=== PATIENT | female | born 1955 | race African-American/Black ===

== ENCOUNTER 2023-11-19 09:52 | Inpatient (IN) | payer MEDICARE, MEDICAID ==
[2023-11-19] MEDS ORDERED: Calcium Carbonate 500 MG ChewTAB PO PRN (12:02)
[2023-11-19] MEDS ORDERED: Senokot S 8.6-50 MG TAB PO PRN (12:02)
[2023-11-19] MEDS ORDERED: Ipratropium/Albuterol 3 ML NEB NEB PRN (12:09)
[2023-11-19] MEDS ORDERED: ENOXAPARIN IVPB PRN (12:14)
[2023-11-19] MEDS ORDERED: niCARdipine 25 MG in Sodium Chloride 0.9% 250 ML 250 ML IVPB SCH (12:15)
[2023-11-19 12:29] VITALS: BMI 19.3
[2023-11-19] MEDS: methylPREDNISolone Sod Succ 40 MG VIAL IVP SCH (13:20)
[2023-11-19] MEDS: Acetaminophen 325 MG TAB PO PRN (13:30)
[2023-11-19] MEDS: Enoxaparin 60 MG (0.6 mL) SYRINGE SC SCH ×2 (13:31→20:18)
[2023-11-19 17:04] LABS: Troponin I 1.583 ng/mL (< 0.028)
[2023-11-19 19:02] LABS: Critical Call Chem Troponin I RESULT DECREASING; Troponin I 1.572 ng/mL (< 0.028)
[2023-11-19] MEDS: Ondansetron PF 4 MG/2 ML Vial IVP PRN (20:19)
[2023-11-19] MEDS: hydrALAZINE 20 MG/ML VIAL SLOW IVP PRN (20:19)
[2023-11-19] MEDS: Atorvastatin Calcium 40 MG TAB PO SCH (20:20)
[2023-11-19] MEDS: Benzonatate 100 MG CAP PO PRN (21:03)
[2023-11-19] MEDS ORDERED: Labetalol HCl 100 MG/20 ML VIAL SLOW IVP PRN (21:27)
[2023-11-20 05:07] LABS: #Basophils Less than 0.03 10x3/uL (0.0-0.2); #Eosinphils Less than 0.03 10x3/uL (0.0-0.7); %Basophils 0.1 % (0.0-1.0); %Lymphocytes 10.9 % (21.0-51.0); %Monocytes 5.7 % (0.0-10.0); %Neutrophils 82.8 % (42.0-75.0); Hematocrit 37.7 % (36.0-47.0); Hemoglobin 12.7 g/dL (12.0-16.0); Mean Corpuscular HGB CONC 33.7 g/dL (32.0-36.0); Mean Corpuscular Hemoglobin 31.7 pg (27.0-31.0); Mean Platelet Volume 10.5 fL (7.4-10.4); Platelet Count 282 10x3/uL (130-400); RBC Distribution Width 12.6 % (11.5-14.5); Red Blood Cell (RBC) Count 4.01 mill/uL (4.20-5.40)
[2023-11-20 05:18] LABS: Hemoglobin A1c 5.7 % (4.0-6.0)
[2023-11-20 05:35] LABS: ALT (SGPT) 14 U/L (8-55); AST (SGOT) 24 U/L (5-34); Albumin 3.5 g/dL (3.4-4.8); Alkaline Phosphatase 75 U/L (40-110); Anion Gap 13 mmol/L (10-20); BUN (Urea Nitrogen) 26 mg/dL (9.8-20.1); Bilirubin, Total 0.2 mg/dL (0.2-1.2); Calc. Creatinine Clearance 33 mL/min (70-130); Calcium 8.8 mg/dL (7.8-10.44); Carbon Dioxide 22 mmol/L (23-31); Chloride 104 mmol/L (98-107); Cholesterol 191 mg/dl (< 200 Desired); Estimated GFR 47; Globulin 3.5 g/dL (2.4-3.5); Glucose 116 mg/dL (80-115); HDL Cholesterol 64 mg/dL (>60 Neg Risk); LDL Cholesterol, Calculated 119 mg/dL; Magnesium 2.1 mg/dL (1.6-2.6); Potassium 4.1 mmol/L (3.5-5.1); Sodium 135 mmol/L (136-145); Triglycerides 40 mg/dL (Less than 150)
[2023-11-20] MEDS: methylPREDNISolone Sod Succ 40 MG VIAL IVP SCH (06:24)
[2023-11-20] MEDS ORDERED: Enoxaparin 40 MG (0.4 mL) SYRINGE SC SCH (09:00)
[2023-11-20] MEDS: cefTRIAXone\\ROCEPHIN 1 GM in Sodium Chloride 0.9% 100 ML IVPB SCH (09:38)
[2023-11-20] MEDS: Aspirin 81 mg Enteric Coated Tablet PO SCH (09:38)
[2023-11-20] MEDS: Pantoprazole 40 MG VIAL IVP SCH (09:39)
[2023-11-20] MEDS: NIFEdipine XL 30 MG ER.TAB PO SCH (09:39)
[2023-11-20] MEDS: Azithromycin 500 MG in Sodium Chloride 0.9% 250 ML 250 ML IVPB SCH (09:44)
[2023-11-20] MEDS ORDERED: Ondansetron ODT 4 MG TAB PO PRN (11:55)
[2023-11-20] MEDS: predniSONE 20 MG TAB PO SCH (13:15)
[2023-11-20] MEDS: Cefdinir 300 MG CAP PO SCH (20:36)
[2023-11-21 05:44] LABS: #Basophils Less than 0.03 10x3/uL (0.0-0.2); #Eosinphils Less than 0.03 10x3/uL (0.0-0.7); %Basophils 0.1 % (0.0-1.0); %Lymphocytes 10.4 % (21.0-51.0); %Monocytes 4.5 % (0.0-10.0); %Neutrophils 84.4 % (42.0-75.0); Hematocrit 36.2 % (36.0-47.0); Hemoglobin 12.1 g/dL (12.0-16.0); Mean Corpuscular HGB CONC 33.4 g/dL (32.0-36.0); Mean Corpuscular Hemoglobin 32.3 pg (27.0-31.0); Mean Corpuscular Volume 96.5 fL (78.0-98.0); Mean Platelet Volume 11.5 fL (7.4-10.4); Platelet Count 275 10x3/uL (130-400); RBC Distribution Width 13.1 % (11.5-14.5); Red Blood Cell (RBC) Count 3.75 mill/uL (4.20-5.40)
[2023-11-21 06:36] LABS: Anion Gap 11 mmol/L (10-20); BUN (Urea Nitrogen) 30 mg/dL (9.8-20.1); Calc. Creatinine Clearance 42 mL/min (70-130); Calcium 9.4 mg/dL (7.8-10.44); Carbon Dioxide 21 mmol/L (23-31); Chloride 106 mmol/L (98-107); Estimated GFR 63; Glucose 107 mg/dL (80-115); Potassium 4.6 mmol/L (3.5-5.1); Sodium 133 mmol/L (136-145)
[2023-11-21 07:07] LABS: Free T4 (Free Thyroxine) 1.04 ng/dL (0.70-1.48)
[2023-11-21] MEDS: predniSONE 20 MG TAB PO SCH (09:49)
[2023-11-21] MEDS: Pantoprazole DR 40 MG TAB PO SCH (09:49)
[2023-11-21] MEDS: Spironolactone 25 MG TAB PO SCH (12:58)
[2023-11-22] MEDS: hydrALAZINE 20 MG/ML VIAL SLOW IVP PRN (01:11)
[2023-11-22] MEDS: Dapagliflozin Propanediol 10 MG TAB PO SCH (09:19)
[2023-11-22] MEDS: Spironolactone 25 MG TAB PO SCH (09:19)
[2023-11-22] MEDS: Clopidogrel Bisulfate 75 MG TAB PO SCH (09:19)
[2023-11-22] MEDS: Bisoprolol Fumarate 5 MG TAB PO SCH (09:19)
[2023-11-22] MEDS: Valsartan 80 MG TAB PO SCH (09:19)
[2023-11-22 15:53] VITALS: BP 137/80; TEMP 98.2
== END 2023-11-22 17:45 | disposition home or self-care (01) | DRG 280 ==
LOC: CCU 11:53 → 2NO 11-20 06:46
PROVIDERS: ADMIT Internal Medicine; ATTEND Family Medicine
DX: I11.0 Hypertensive heart disease with heart failure (principal); I50.23 Acute on chronic systolic (congestive) heart failure; I21.4 Non-ST elevation (NSTEMI) myocardial infarction; J96.01 Acute respiratory failure with hypoxia; I16.1 Hypertensive emergency; N17.9 Acute kidney failure, unspecified; J44.1 Chronic obstructive pulmonary disease with (acute) exacerbation; I42.0 Dilated cardiomyopathy; F14.10 Cocaine abuse, uncomplicated; F41.9 Anxiety disorder, unspecified; F17.210 Nicotine dependence, cigarettes, uncomplicated; Z71.51 Drug abuse counseling and surveillance of drug abuser; Z90.49 Acquired absence of other specified parts of digestive tract; Z91.148 Patient's other noncompliance with medication regimen for other reason
CPT/HCPCS: 36415; 71045; 80048; 80053; 80061; 83036; 83735; 83880; 84439; 84443; 84481; 85025; 93306; 97139; J0360; J0456; J0696; J1650; J2405; J2470; J2919; J7050; J7512